=== PATIENT | male | born 1960 | race African-American/Black ===

== ENCOUNTER 2017-04-02 14:32 | Emergency (ER) | payer OTHER ==
--- NOTE | 2017-04-02 15:41 | RAD ---
LFT SHOULDER THREE VIEWS: History: Fall. Left shoulder pain. FINDINGS/IMPRESSION: No fracture or dislocation is identified. POS: [facility]
--- NOTE | 2017-04-02 15:42 | RAD ---
LEFT HIP TWO VIEWS: History: Fall, left hip pain. FINDINGS/IMPRESSION: No acute fracture or dislocation is identified. POS: [facility]
--- NOTE | 2017-04-02 15:52 | RAD ---
RADIOGRAPH CERVICAL SPINE 4 VIEWS: HISTORY: 56-year-old male with traumatic cervicalgia due to fall. FINDINGS: The vertebral body heights are maintained. Alignment is normal except for minimal chronic degenerati ve retrolisthesis of C2 on C3. Minimal discogenic degenerative changes at a few levels. No preverteb ral soft tissue swelling. There are bilateral degenerative facet changes at multiple levels, ranging from mild to moderate. Atlantoaxial joints are preserved. No fracture identified. IMPRESSION: 1. No acute findings. 2. Mild cervical spondylosis. JN [] POS: [facility]
--- NOTE | 2017-04-02 16:27 | RAD ---
LEFT ELBOW TWO VIEWS: 04/02/17 HISTORY: Fall, left elbow pain. FINDINGS/IMPRESSION: No definite fracture or dislocation is seen. If symptoms do not improve, followup exam should be obt ained in 5 to 7 days. POS: [facility]
== END 2017-04-02 16:50 | disposition home or self-care (01) ==
LOC: ERS 14:32
DX: S70.02XA Contusion of left hip, initial encounter (principal); S40.012A Contusion of left shoulder, initial encounter; S50.02XA Contusion of left elbow, initial encounter; I69.354 Hemiplegia and hemiparesis following cerebral infarction affecting left non-dominant side; G43.909 Migraine, unspecified, not intractable, without status migrainosus; E78.5 Hyperlipidemia, unspecified; I10 Essential (primary) hypertension; W01.0XXA Fall on same level from slipping, tripping and stumbling without subsequent striking against object, initial encounter
CPT/HCPCS: 72040

== ENCOUNTER 2017-07-18 16:37 | Outpatient (CLI) | payer OTHER | END 2017-07-18 16:38 | disposition home or self-care (01) | LOC: BICMRI 16:37 | PROVIDERS: ATTEND Orthopaedic Surgery | DX: M25.512 Pain in left shoulder (principal) ==

== ENCOUNTER 2018-03-23 09:51 | Outpatient (CLI) | payer OTHER ==
--- NOTE | 2018-03-23 12:09 | ULT ---
VENOUS DOPPLER ULTRASOUND OF THE RIGHT LOWER EXTREMITY: Date: 03/23/18 HISTORY: Right anterior thigh pain. TECHNIQUE: Daniel scale ultrasound with color flow and spectral Doppler imaging of the deep venous system of the r ight lower extremity is performed. FINDINGS: There is good flow, compression, and augmentation noted in the right common femoral, femoral, deep fe moral, popliteal, posterior tibial, and greater saphenous veins. IMPRESSION: No evidence of deep venous thrombosis in the right lower extremity. POS: [facility]
== END 2018-03-23 09:52 | disposition home or self-care (01) ==
LOC: BICULT 09:51
PROVIDERS: ATTEND Internal Medicine
DX: M79.604 Pain in right leg (principal)

== ENCOUNTER 2018-04-04 08:31 | Emergency (ER) | payer OTHER ==
[2018-04-04 09:09] LABS: #Basophils 0.1 thou/uL (0.0-0.2); #Eosinphils 0.1 thou/uL (0.0-0.7); #Lymphocytes 2.3 thou/uL (1.20-3.40); #Monocytes 0.6 thou/uL (0.11-0.59); #Neutrophils 1.9 thou/uL (1.40-6.50); %Basophils 1.2 % (0.0-1.0); %Eosinophils 1.7 % (0.0-10.0); %Lymphocytes 47.2 % (21.0-51.0); %Monocytes 12.3 % (0.0-10.0); %Neutrophils 37.6 % (42.0-75.0); Hemoglobin 14.8 g/dL (14.0-18.0); Mean Corpuscular HGB CONC 33.6 g/dL (32.0-36.0); Mean Corpuscular Hemoglobin 31.1 pg (27.0-31.0); Mean Corpuscular Volume 92.7 fL (78.0-98.0); Mean Platelet Volume 8.6 fL (7.4-10.4); Platelet Count 183 thou/uL (130-400); RBC Distribution Width 12.3 % (11.5-14.5); Red Blood Cell (RBC) Count 4.75 mill/uL (4.70-6.10); White Blood Cell (WBC) Count 4.9 thou/uL (4.8-10.8)
[2018-04-04 09:28] LABS: Anion Gap 14 mmol/L (10-20); BUN (Urea Nitrogen) 10 mg/dL (8.4-25.7); Calc. Creatinine Clearance 0 mL/min (70-130); Calcium 9.8 mg/dL (7.8-10.44); Carbon Dioxide 23 mmol/L (22-29); Chloride 105 mmol/L (98-107); Estimated GFR-MDRD Greater than 90; Glucose 96 mg/dL (70-105); Potassium 3.8 mmol/L (3.5-5.1); Sodium 138 mmol/L (136-145)
[2018-04-04] MEDS ORDERED: Acetaminophen 325 MG TAB ONE (09:34)
[2018-04-04] MEDS ORDERED: Lidocaine 1% (PF) 30 ML VIAL ONE (10:03)
--- NOTE | 2018-04-04 11:00 | RAD ---
RIGHT KNEE 4 VIEWS: Date: 04/04/18 HISTORY: 57-year-old male with history of right lower leg and knee swelling and pain for several weeks. FINDINGS: There is evidence for knee joint fluid with some distention of the suprapatellar recess. Mild degener ative changes of the knee joint. No acute fracture or dislocation. IMPRESSION: Evidence for knee joint effusion with distention of the suprapatellar recess. Mild degenerative foster es. If there is concern for internal derangement, nonemergent follow-up MRI might give additional informa tion. POS: [facility]
--- NOTE | 2018-04-04 11:08 | ULT ---
ULTRASOUND WITH DOPPLER DUPLEX VENOUS LOWER EXTREMITY RIGHT: CPT: 13967 ICD-10-PCS: B54D INDICATION: Pain and edema of right lower extremity. TECHNIQUE: Color flow Doppler, spectral waveform analysis of pulsed Doppler, and cramer-scale imaging with wei obi and augmentation, were used to evaluate the right common femoral, femoral, popliteal, posterior tibial, and superficial femoral, veins; and the proximal portions of the profunda femoral and greater saphenous, veins. FINDINGS: There is appropriate compressibility and flow within the imaged deep vein system of the right lower e xtremity without evidence of deep venous thrombosis. IMPRESSION: No deep venous thrombosis evident within the visualized right lower extremity. POS: [facility]
[2018-04-04 11:32] LABS: Body Fluid Source SYNOVIAL FLUID; Clarity Cloudy/Turbid (Clear)
[2018-04-04 11:33] LABS: BF Color Red; RBC Background Count 0.004; RBC Count-Automated 4520000 /cumm; WBC/NonHematic-Auto 2750 /cumm
[2018-04-04 11:50] LABS: BF Segmented Neutrophils 39 %; Cell Count Non Hematic 6 %; Lymphocytes 55 %
== END 2018-04-04 12:46 | disposition home or self-care (01) ==
LOC: ERS 08:31
DX: M25.561 Pain in right knee (principal); R60.0 Localized edema; Z86.73 Personal history of transient ischemic attack (TIA), and cerebral infarction without residual deficits; G43.909 Migraine, unspecified, not intractable, without status migrainosus; E78.5 Hyperlipidemia, unspecified; I10 Essential (primary) hypertension; Z79.899 Other long term (current) drug therapy
CPT/HCPCS: 20610; 36415; 80048; 82945; 85025; 85060; 85379; 85652; 86140; 87070; 87205; 89051; 89060; J2001

== ENCOUNTER 2018-04-06 23:25 | Emergency (ER) | payer OTHER | END 2018-04-07 00:24 | disposition home or self-care (01) | LOC: ERS 23:25 | DX: M25.461 Effusion, right knee (principal); Z86.73 Personal history of transient ischemic attack (TIA), and cerebral infarction without residual deficits; G43.909 Migraine, unspecified, not intractable, without status migrainosus; E78.5 Hyperlipidemia, unspecified; I10 Essential (primary) hypertension; Z79.899 Other long term (current) drug therapy; Z79.82 Long term (current) use of aspirin | CPT/HCPCS: 99283 ==

== ENCOUNTER 2018-08-06 13:58 | Outpatient (CLI) | payer OTHER ==
--- NOTE | 2018-08-06 19:27 | MRI ---
MRI RIGHT KNEE WITHOUT CONTRAST: HISTORY: Right medial meniscus tear. COMPARISON: Radiograph from 04/04/2018. FINDINGS: MEDIAL MENISCUS: Mild intrameniscal degeneration of the body and posterior horn without displaced te ar. There is, however, 2 to 3 mm medial gutter displacement of the meniscal body. LATERAL MENISCUS: Intact. There is mild intraligamentous degenerative of the ACL. PCL is intact. Chronic thickening of the MC L. LCL is intact. EXTENSOR MECHANISM: Quadriceps tendon, patella, and patellar tendon are intact. CARTILAGE: PATELLOFEMORAL COMPARTMENT: Intact. MEDIAL COMPARTMENT: There is multifocal high-grade cartilage fissuring and fraying of the weight-saeid ring surfaces of the medial femoral condyle and medial tibial plateau, with some mild articular surfa ce remodeling, as well as subcortical reactive marrow changes, due to full-thickness cartilage fissur ing of the lateral margin of the medial femoral condyle. LATERAL COMPARTMENT: Low-grade chondral fraying, less than 25%. SOFT TISSUES: There is abnormal pretibial and prepatellar soft tissue swelling. Partial tear of the semimembranosus tendon, as well as a moderate-sized semimembranosus bursa effusion. Also, small pop liteus bursa effusion. BONES: No fracture. No malalignment. Small medial compartment osteophytes. IMPRESSION: 1. Moderate degeneration of the medial meniscal body and posterior horn with gutter extrusion, 2 to 3 mm, and subsequent grade 3 and a few foci of grade 4 chondromalacia of the medial compartment. 2. Mild interstitial type tearing of the semimembranosus tendon with moderate semimembranosus bursa effusion. 3. Mild pretibial and prepatellar soft tissue swelling. 4. Moderate popliteus bursa effusion. 5. Mild intraligamentous degeneration of the anterior cruciate ligament. POS: [facility]
== END 2018-08-06 13:59 | disposition home or self-care (01) ==
LOC: BICMRI 13:58
PROVIDERS: ATTEND Orthopaedic Surgery
DX: S83.241A Other tear of medial meniscus, current injury, right knee, initial encounter (principal); M79.89 Other specified soft tissue disorders; M25.462 Effusion, left knee; M23.321 Other meniscus derangements, posterior horn of medial meniscus, right knee

== ENCOUNTER 2018-09-11 10:40 | Outpatient (CLI) | payer OTHER | END 2018-09-11 10:41 | disposition home or self-care (01) | LOC: CTENTCT 10:40 | PROVIDERS: ATTEND Specialist | DX: J32.9 Chronic sinusitis, unspecified (principal) | CPT/HCPCS: 70486 ==

== ENCOUNTER 2018-09-17 12:41 | Day surgery (SDC) | payer OTHER ==
[2018-09-16 11:51] VITALS: BMI 27.8
[2018-09-17] MEDS ORDERED: Oxymetazoline HCl 0.05% ( 15 ML ) ONE (13:09)
[2018-09-17 13:39] LABS: Anion Gap 13 mmol/L (10-20); BUN (Urea Nitrogen) 13 mg/dL (8.4-25.7); Calc. Creatinine Clearance 88 mL/min (70-130); Calcium 9.9 mg/dL (7.8-10.44); Carbon Dioxide 30 mmol/L (22-29); Chloride 101 mmol/L (98-107); Estimated GFR-MDRD Greater than 90; Glucose 95 mg/dL (70-105); Potassium 4.1 mmol/L (3.5-5.1); Sodium 140 mmol/L (136-145)
[2018-09-17] MEDS ORDERED: Lidocaine 1% w/Epinephrine 1:100K 20 ML VIAL ONE (14:57)
[2018-09-17] MEDS ORDERED: methylPREDNISolone Acetate 40 mg/ml Vial ONE (15:16)
[2018-09-17] MEDS ORDERED: Fentanyl 100 MCG/2 ML VIAL ONE (15:25)
--- NOTE | 2018-09-18 09:24 | OP ---
DATE OF PROCEDURE: 09/17/2018 PREOPERATIVE DIAGNOSES: 1. Chronic sinusitis. 2. Chronic cough. 3. Nasal obstruction. 4. Hypertrophic inferior turbinates. POSTOPERATIVE DIAGNOSES: 1. Chronic sinusitis. 2. Chronic cough. 3. Nasal obstruction. 4. Hypertrophic inferior turbinates. PROCEDURE PERFORMED: 1. Bilateral nasal endoscopy with maxillary antrostomy with removal of tissue. 2. Bilateral nasal endoscopy with total ethmoidectomy. 3. Bilateral nasal endoscopy with frontal sinusotomy. 4. Bilateral nasal endoscopy with submucosal resection of inferior turbinates. DESCRIPTION OF PROCEDURE: After consent was obtained, the patient was identified, brought to the operating room, and placed on the operating room table in the supine position. Consent was obtained, notifying the patient of the possibility of additional infections, bleeding, brain injury, and eye/orbital injury. The patient was placed on the operating room table, and general endotracheal anesthesia and intravenous access was obtained. The patient was then positioned, prepped and draped for endoscopic sinus surgery. Nasal preparation included trimming nasal vestibular hairs and spraying in topical Afrin. We then placed Afrin topical solution on nasal pledgets and strategically located them intranasally. The perinasal mucosa was injected with 1% lidocaine with 1:100,000 epinephrine in the submucoperichondrial plane of the septum, lateral nasal wall, and anterior to the uncinate. The patient was then prepped and draped in a sterile fashion and positioned for endoscopic sinus surgery. BILATERAL NASAL ENDOSCOPY WITH MAXILLARY ANTROSTOMY WITH REMOVAL OF TISSUE: The uncinate was then identified and the extent of the uncinate was appreciated by out-fracturing the uncinate with the ball-tip probe. We then used the sickle blade to disarticulate the uncinate from the lateral nasal wall. This was then removed with straight biting and upbiting punches with the remaining shrouds of mucosa and bony septum removed with the micro-debrider. The natural os of the maxillary sinus was then identified and enlarged with the maxillary punches and back biting forceps. BILATERAL NASAL ENDOSCOPY WITH TOTAL ETHMOIDECTOMY: The anterior face of the ethmoid bulla was entered and with the micro-debrider, dissection continued posteriorly to the ground lamella. The limits of dissection included the insertion of the middle turbinate, medial orbital wall, and base of skull. We similarly identified the frontal recess and removed shrouds of bone and debris in that region to obtain patency into the agger nasi region and frontal recess. We then entered the ground lamella and its anteroinferior aspect and proceeded posteriorly, opening the posterior ethmoid air-cell system. Again, the limits of dissection included the base of skull and medial orbital wall. BILATERAL NASAL ENDOSCOPY WITH FRONTAL SINUSOTOMY: Following the ethmoidectomy, we then turned our attention to the frontal nasal recess. The agger nasi cells were addressed and the frontal recess was exposed. The natural opening to the frontal sinus was identified. At this point, any obstructing shrouds of mucosa and bony fragments were removed with a curved microdebrider. The wound was then examined and found to be free of any obstructing debris. We then turned our attention to the contralateral side and performed a similar procedure again under endoscopic visualization using a 45-degree scope. We were able to visualize the frontal recess. Obstructing shrouds of mucosa and bone were removed with a microdebrider. The natural os of frontal sinus was identified and enlarged and irrigated. At this point, the frontal sinusotomy was completed and we turned to the next area of concern. BILATERAL NASAL ENDOSCOPY WITH SUBMUCOSAL RESECTION OF INFERIOR TURBINATES: With the 0-degree endoscope, the patient underwent systematic nasal endoscopy. There were no suspicious internasal masses or lesions identified. We then focused our attention to the osteomeatal complex region under the middle turbinate. The inferior turbinates were visualized with a 0 degree endoscope and outfractured with a Mallika elevator. The inferior medial aspect was cauterized with the electrocautery. Hemostasis was obtained . After adequate airway was established, we turned our attention to the contralateral side and used a similar procedure. Again, a Mallika elevator was used to outfracture inferior turbinates under endoscopic visualization. With a suction cautery, the free inferior medial aspect was cauterized under direct visualization along the length of the inferior turbinate. At this point, we then turned our attention to the contralateral side and proceeded with endoscopic sinus surgery. At the completion of the case, Rice keel splints were placed in the ethmoid cavities after the ethmoidectomy. There were no complications. The patient tolerated the procedure well and was discharged to the recovery room in stable condition prior to return to the preoperative day stay with ultimate discharge home. Prescriptions for pain medication and antibiotics were provided. The patient received intramuscular Depo-Medrol during the case. Job ID: [id number]
== END 2018-09-17 17:19 | disposition home or self-care (01) ==
LOC: SDC 12:41
PROVIDERS: ATTEND Specialist
PROC: 099T8ZZ Drainage of Left Frontal Sinus, Via Natural or Artificial Opening Endoscopic (ICD-10-PCS; principal; 2018-09-17)
PROC: 099S8ZZ Drainage of Right Frontal Sinus, Via Natural or Artificial Opening Endoscopic (ICD-10-PCS; principal; 2018-09-17)
PROC: 09TV8ZZ Resection of Left Ethmoid Sinus, Via Natural or Artificial Opening Endoscopic (ICD-10-PCS; principal; 2018-09-17)
PROC: 09SL8ZZ Reposition Nasal Turbinate, Via Natural or Artificial Opening Endoscopic (ICD-10-PCS; principal; 2018-09-17)
PROC: 09BQ8ZZ Excision of Right Maxillary Sinus, Via Natural or Artificial Opening Endoscopic (ICD-10-PCS; principal; 2018-09-17)
PROC: 09TU8ZZ Resection of Right Ethmoid Sinus, Via Natural or Artificial Opening Endoscopic (ICD-10-PCS; principal; 2018-09-17)
PROC: 09BR8ZZ Excision of Left Maxillary Sinus, Via Natural or Artificial Opening Endoscopic (ICD-10-PCS; principal; 2018-09-17)
DX: J32.4 Chronic pansinusitis (principal); J34.89 Other specified disorders of nose and nasal sinuses; J34.3 Hypertrophy of nasal turbinates; J02.9 Acute pharyngitis, unspecified; I10 Essential (primary) hypertension; G43.909 Migraine, unspecified, not intractable, without status migrainosus; Z86.73 Personal history of transient ischemic attack (TIA), and cerebral infarction without residual deficits; Z79.51 Long term (current) use of inhaled steroids; Z79.82 Long term (current) use of aspirin; Z79.899 Other long term (current) drug therapy
CPT/HCPCS: 36415; 80048; 93005; 93010; J1030; J2001; J3010

== ENCOUNTER 2019-03-08 10:38 | Outpatient (CLI) | payer OTHER ==
--- NOTE | 2019-03-08 14:00 | MRI ---
MRI LEFT KNEE PERFORMED WITHOUT CONTRAST ENHANCEMENT: Date: 03/08/19 HISTORY: Left knee pain and swelling. FINDINGS: The anterior, as well as posterior cruciate ligaments are intact. The medial, as well as lateral menisci have a normal shape and appearance. Medial collateral ligament is intact. There is edema change both superficial and deep to the MCL, but also edema changes within the subcutaneous tissue. There is also mild joint effusion. Lateral collat eral ligament and iliotibial band regions are unremarkable. Patellar articular cartilage shows some mild thinning of the medial facet. The medial and lateral pat ellar retinaculum, and quadriceps and patellar tendons are normal. There are some areas of mild articular cartilage loss and some joint space narrowing of the medial co mpartment of the knee. There are some minimal edema changes along the medial edge of the tibia. IMPRESSION: 1. Moderate knee joint effusion. 2. No evidence of cruciate ligament or meniscal injury. 3. Articular cartilage loss involving the medial compartment of the knee. 4. Subcutaneous edema changes, more along the anterior aspect of the knee. POS: [facility]
== END 2019-03-08 10:39 | disposition home or self-care (01) ==
LOC: BICMRI 10:38
PROVIDERS: ATTEND Orthopaedic Surgery
DX: M25.562 Pain in left knee (principal); M25.462 Effusion, left knee

== ENCOUNTER 2019-06-04 07:25 | Outpatient (CLI) | payer OTHER ==
--- NOTE | 2019-06-04 08:03 | RAD ---
SINUSES 3 VIEWS: Date: 06/04/19 HISTORY: Chronic sinusitis. FINDINGS/IMPRESSION: No air fluid levels are seen. There is increased density in the maxillary sinuses suspicious for muco everardo thickening/chronic sinusitis. Further evaluation with CT scan would be helpful. POS: [facility]
== END 2019-06-04 07:26 | disposition home or self-care (01) ==
LOC: BICRAD 07:25
PROVIDERS: ATTEND Internal Medicine
DX: J32.9 Chronic sinusitis, unspecified (principal)
CPT/HCPCS: 70220

== ENCOUNTER 2020-06-12 09:53 | Outpatient (CLI) | payer OTHER ==
--- NOTE | 2020-06-12 10:10 | RAD ---
EXAM: Two views chest PROVIDED CLINICAL HISTORY: Dyspnea COMPARISON: None currently available FINDINGS: Cardiac and mediastinal silhouette appears within normal limits. Lungs appear free of significant opa city. No pleural fluid or pneumothorax apparent. IMPRESSION: No evidence for an acute cardiopulmonary process.
== END 2020-06-12 09:54 | disposition home or self-care (01) ==
LOC: BICRAD 09:53
PROVIDERS: ATTEND Internal Medicine
DX: R06.00 Dyspnea, unspecified (principal)
CPT/HCPCS: 71046

== ENCOUNTER 2021-06-01 14:28 | Outpatient (CLI) | payer OTHER | END 2021-06-01 14:29 | disposition home or self-care (01) | LOC: SCSMRI 14:28 | PROVIDERS: ATTEND Nurse Practitioner Acute Care | DX: G43.909 Migraine, unspecified, not intractable, without status migrainosus (principal); R42 Dizziness and giddiness | CPT/HCPCS: 70553; 82565 ==

== ENCOUNTER 2022-01-03 14:11 | Outpatient (CLI) | payer OTHER | END 2022-01-03 14:12 | disposition home or self-care (01) | LOC: BICRAD 14:11 | PROVIDERS: ATTEND Student in an Organized Health Care Education/Training Program | DX: M25.561 Pain in right knee (principal); M54.50 Low back pain, unspecified; M47.816 Spondylosis without myelopathy or radiculopathy, lumbar region | CPT/HCPCS: 72100 ==

== ENCOUNTER 2022-06-13 14:13 | Outpatient (CLI) | payer OTHER | END 2022-06-13 14:14 | disposition home or self-care (01) | LOC: MRI 14:13 | PROVIDERS: ATTEND Nurse Practitioner Family | DX: M47.26 Other spondylosis with radiculopathy, lumbar region (principal); M47.25 Other spondylosis with radiculopathy, thoracolumbar region | CPT/HCPCS: 72148 ==

== ENCOUNTER 2022-07-04 13:38 | Outpatient (CLI) | payer OTHER | END 2022-07-04 13:39 | disposition home or self-care (01) | LOC: BICRAD 13:38 | PROVIDERS: ATTEND Student in an Organized Health Care Education/Training Program | DX: M54.6 Pain in thoracic spine (principal) | CPT/HCPCS: 72072 ==

== ENCOUNTER 2023-04-06 18:38 | Emergency (ER) | payer OTHER ==
[2023-04-06] MEDS ORDERED: Ketorolac Tromethamine 30 MG/ML VIAL ONE (19:45)
== END 2023-04-06 20:19 | disposition home or self-care (01) ==
LOC: ERS 18:38
DX: M54.50 Low back pain, unspecified (principal); E78.5 Hyperlipidemia, unspecified; I10 Essential (primary) hypertension
CPT/HCPCS: 96372; 99283; J1885

== ENCOUNTER 2024-04-14 07:27 | Outpatient (CLI) | payer OTHER ==
[2024-04-14] MEDS ORDERED: Iopamidol 370 76% 100 ML VIAL ONE (10:35)
== END 2024-04-14 07:28 | disposition home or self-care (01) ==
LOC: CT 07:27
PROVIDERS: ATTEND Internal Medicine Gastroenterology
DX: R10.32 Left lower quadrant pain (principal); R11.2 Nausea with vomiting, unspecified; R63.4 Abnormal weight loss
CPT/HCPCS: 36415; 74177; 82565; Q9967

== ENCOUNTER 2024-04-28 07:34 | Outpatient (CLI) | payer OTHER | END 2024-04-28 07:35 | disposition home or self-care (01) | LOC: ULT 07:34 | PROVIDERS: ATTEND Internal Medicine Nephrology | DX: I12.9 Hypertensive chronic kidney disease with stage 1 through stage 4 chronic kidney disease, or unspecified chronic kidney disease (principal); N18.9 Chronic kidney disease, unspecified | CPT/HCPCS: 76770; 93975 ==